=== PATIENT | male | born 1965 | race Caucasian/White ===

== ENCOUNTER 2017-06-04 08:57 | Inpatient (IN) | payer BC ==
[2017-06-04] VITALS (15 sets, daily range): BP systolic 108–141; BP diastolic 71–97
[~2017-06-04] VITALS: Ht 175.3 cm; Wt 85.0 kg
[2017-06-04] MEDS ORDERED: aspirin 81mg tab.chew PO ONE (09:05)
[2017-06-04] MEDS ORDERED: nitroGLYCERIN 0.4mg SUBLingual tab SL PRN ×2 (09:05→11:15)
[2017-06-04] MEDS ORDERED: metoprolol tartrate 25mg tablet PO ONE (09:10)
[2017-06-04] MEDS ORDERED: heparin 10,000 units/1 ML INJ IV PRN (09:20)
[2017-06-04] MEDS ORDERED: heparin 10,000 units/1 ML INJ IV ONE (09:20)
[2017-06-04] MEDS ORDERED: ondansetron/PF 4mg/2ml inj IV ONE (09:25)
[2017-06-04] MEDS ORDERED: morphine 4 MG/ML inj SYRINge IV ONE (09:25)
[2017-06-04 09:26] LABS: BASOPHILS % (AUTO) 0.4 % (0-1); EOSINOPHILS # (AUTO) 0.2 X10'3 (0-0.9); EOSINOPHILS % (AUTO) 2.1 % (0-6); HEMATOCRIT 47.3 % (42.0-52.0); HEMOGLOBIN 16.6 g/dl (14.0-17.9); LYMPHOCYTES # (AUTO) 2.8 X10'3 (1.1-4.8); LYMPHOCYTES % (AUTO) 28.1 % (21-51); MEAN CORPUSCULAR HEMOGLOBIN 32.2 PG (27.0-31.0); MEAN CORPUSCULAR HGB CONC 35.2 % (33.0-36.5); MEAN CORPUSCULAR VOLUME 91.4 FL (78-98); MEAN PLATELET VOLUME 8.2 FL (7.4-10.4); MONOCYTES # (AUTO) 0.8 X10'3 (0-0.9); NEUTROPHILS % (AUTO) 61.4 % (42-75); PLATELET COUNT 270 X10'3 (140-440); RED BLOOD COUNT 5.17 X10'6 (4.70-6.10); RED CELL DISTRIBUTION WIDTH 13.4 % (11.5-14.5); WHITE BLOOD COUNT 9.8 X10'3 (4.5-11.0)
[2017-06-04] MEDS ORDERED: fentaNYL/PF 50MCG/1 ML 2ML syringe ONE (09:39)
[2017-06-04] MEDS ORDERED: LIDOcaine 1%/PF (10mg/ml) 5ml vial ONE (09:40)
[2017-06-04] MEDS ORDERED: iohexol 350 MG/1 ML 200ml bottle ONE (09:40)
[2017-06-04] MEDS ORDERED: midazolam 2 mg/2 ml injection ONE (09:40)
[2017-06-04] MEDS ORDERED: atropine 0.1mg/ml 10ml syringe ONE (09:48)
[2017-06-04 09:53] LABS: ALANINE AMINOTRANSFERASE 30 U/L (12-78); ALBUMIN 4.1 G/DL (3.4-5.0); ALKALINE PHOSPHATASE 71 IU/L (46-116); ANION GAP 13 (8-16); ASPARTATE AMINO TRANSFERASE 27 U/L (10-37); BILIRUBIN,TOTAL 0.9 MG/DL (0.1-1.0); BLOOD UREA NITROGEN 16 MG/DL (7-18); BUN/CREATININE RATIO 11.6 (5.4-32.0); CALCIUM 9.5 MG/DL (8.5-10.1); CHLORIDE 103 MMOL/L (99-107); CREATININE 1.38 MG/DL (0.60-1.10); GLUCOSE 142 MG/DL (70-104); SODIUM 139 MMOL/L (135-145); TOTAL CARBON DIOXIDE 22.9 MMOL/L (24-32); TOTAL PROTEIN 8.1 G/DL (6.4-8.2); eGFR 54 ML/MIN
[2017-06-04 09:54] LABS: POTASSIUM 4.2 MMOL/L (3.5-5.1)
[2017-06-04] MEDS ORDERED: heparin 1,000unit/ml 10ml vial 10 ML ONE (09:55)
[2017-06-04] MEDS ORDERED: HYDROmorphone 1 mg/ml syringe ONE (10:06)
[2017-06-04] MEDS ORDERED: nitroGLYCERIN 0.4mg SUBLingual tab SL ONE (10:15)
[2017-06-04] MEDS ORDERED: iohexol 350MG/ML 100ml bottle IV ONE (10:20)
[2017-06-04] MEDS ORDERED: ticagrelor 90mg tablet ONE (10:41)
[2017-06-04] MEDS ORDERED: normal saline 1000ml 1,000 ML IV SCH (11:00)
[2017-06-04] MEDS ORDERED: HYDROcodone/acetaminophen 10/325mg tab PO PRN (11:15)
[2017-06-04] MEDS ORDERED: proCHLORperazine 10 MG/2 ml inj IV PRN (11:15)
[2017-06-04] MEDS ORDERED: ondansetron/PF 4mg/2ml inj IV PRN (11:15)
[2017-06-04] MEDS ORDERED: HYDROcodone/acetaminophen 5mg/325mg tablet PO PRN (11:15)
[2017-06-04] MEDS ORDERED: morphine 4 MG/ML inj SYRINge IV PRN (11:15)
[2017-06-04] MEDS ORDERED: acetaminophen 325mg tablet PO PRN (11:15)
[2017-06-04] MEDS ORDERED: LOSA25TA96 PO (12:16)
[2017-06-04] MEDS: ticagrelor 90mg tablet PO SCH (19:38)
[2017-06-04] MEDS: OXAZEpam 15mg capsule PO PRN (20:05)
[2017-06-05 03:00] VITALS: BP 130/88
[2017-06-05] MEDS: OXAZEpam 15mg capsule PO PRN (03:25)
[2017-06-05 07:00] VITALS: BP 138/84
[2017-06-05 07:33] LABS: BASOPHILS % (AUTO) 0.2 % (0-1); EOSINOPHILS # (AUTO) 0.2 X10'3 (0-0.9); EOSINOPHILS % (AUTO) 2.1 % (0-6); HEMOGLOBIN 14.9 g/dl (14.0-17.9); LYMPHOCYTES # (AUTO) 1.8 X10'3 (1.1-4.8); LYMPHOCYTES % (AUTO) 19.2 % (21-51); MEAN CORPUSCULAR HEMOGLOBIN 32.7 PG (27.0-31.0); MEAN CORPUSCULAR HGB CONC 35.5 % (33.0-36.5); MEAN CORPUSCULAR VOLUME 92.1 FL (78-98); MEAN PLATELET VOLUME 8.5 FL (7.4-10.4); MONOCYTES # (AUTO) 0.9 X10'3 (0-0.9); MONOCYTES % (AUTO) 9.9 % (2-12); NEUTROPHILS # (AUTO) 6.5 X10'3 (1.8-7.7); NEUTROPHILS % (AUTO) 68.6 % (42-75); PLATELET COUNT 210 X10'3 (140-440); RED BLOOD COUNT 4.56 X10'6 (4.70-6.10); RED CELL DISTRIBUTION WIDTH 13.4 % (11.5-14.5); WHITE BLOOD COUNT 9.5 X10'3 (4.5-11.0)
[2017-06-05 07:54] LABS: ALANINE AMINOTRANSFERASE 31 U/L (12-78); ALBUMIN 3.4 G/DL (3.4-5.0); ALKALINE PHOSPHATASE 59 IU/L (46-116); ANION GAP 7 (8-16); ASPARTATE AMINO TRANSFERASE 49 U/L (10-37); BILIRUBIN,TOTAL 0.8 MG/DL (0.1-1.0); BLOOD UREA NITROGEN 16 MG/DL (7-18); BUN/CREATININE RATIO 12.1 (5.4-32.0); CHLORIDE 105 MMOL/L (99-107); CHOL/HDL RATIO 6.2 (0.00-4.99); CHOLESTEROL 174 MG/DL (0-200); CREATININE 1.32 MG/DL (0.60-1.10); GLUCOSE 101 MG/DL (70-104); HDL CHOLESTEROL 28 MG/DL (35-60); LDL CHOLESTEROL 99 MG/DL (50-100); POTASSIUM 3.5 MMOL/L (3.5-5.1); SODIUM 138 MMOL/L (135-145); TOTAL CARBON DIOXIDE 25.6 MMOL/L (24-32); TOTAL PROTEIN 6.9 G/DL (6.4-8.2); TRIGLYCERIDES 232 MG/DL (20-135); eGFR 57 ML/MIN
[2017-06-05] MEDS ORDERED: losartan 25mg tablet PO SCH (08:00)
[2017-06-05] MEDS ORDERED: atorvastatin 20mg tablet PO SCH (08:00)
[2017-06-05] MEDS: ticagrelor 90mg tablet PO SCH (08:07)
[2017-06-05 11:00] VITALS: BP 129/96
[2017-06-05] MEDS ORDERED: ASPI81TA52 PO (13:56)
[2017-06-05] MEDS ORDERED: TICA90TA PO (13:59)
[2017-06-05] MEDS ORDERED: METO25TA6 PO (13:59)
[2017-06-05] MEDS ORDERED: ATOR20TA PO (13:59)
== END 2017-06-05 16:22 | disposition home or self-care (01) | DRG 247 ==
LOC: ER 08:57 → PCU 3S 16:56
PROVIDERS: ADMIT Internal Medicine Interventional Cardiology; ATTEND Internal Medicine Interventional Cardiology
PROC: 4A023N7 Measurement of Cardiac Sampling and Pressure, Left Heart, Percutaneous Approach (ICD-10-PCS; principal; 2017-06-04)
PROC: 027034Z Dilation of Coronary Artery, One Artery with Drug-eluting Intraluminal Device, Percutaneous Approach (ICD-10-PCS; 2017-06-04)
PROC: B2111ZZ Fluoroscopy of Multiple Coronary Arteries using Low Osmolar Contrast (ICD-10-PCS; 2017-06-04)
PROC: B2151ZZ Fluoroscopy of Left Heart using Low Osmolar Contrast (ICD-10-PCS; 2017-06-04)
DX: I21.3 ST elevation (STEMI) myocardial infarction of unspecified site (principal); I10 Essential (primary) hypertension; Z82.49 Family history of ischemic heart disease and other diseases of the circulatory system; Z79.899 Other long term (current) drug therapy
CPT/HCPCS: 93306; 93458; 96361; 96374; 96375; 99291; C9606; 36415; 80053; 80061; 83880; 84484; 85025; 93005; 99152; 99153; A4620; A6257; C1725; C1760; C1769; C1874; J0461; J1170; J1644; J2001; J2250; J2270; J2405; J3010; J7030; Q9967

== ENCOUNTER 2017-07-21 11:24 | Outpatient (CLI) | payer BC ==
[~2017-07-21 11:24] MED LIST: ASPI81TA52 PO; ATOR20TA PO; LOSA25TA96 PO; METO25TA6 PO; TICA90TA PO
[2017-07-21 12:27] LABS: ALANINE AMINOTRANSFERASE 40 U/L (12-78); ALBUMIN 3.7 G/DL (3.4-5.0); ALBUMIN/GLOBULIN RATIO 1.1 (1.1-1.5); ALKALINE PHOSPHATASE 62 IU/L (46-116); ANION GAP 12 (8-16); ASPARTATE AMINO TRANSFERASE 17 U/L (10-37); BILIRUBIN,TOTAL 0.6 MG/DL (0.1-1.0); BLOOD UREA NITROGEN 20 MG/DL (7-18); BUN/CREATININE RATIO 16.7 (5.4-32.0); CHLORIDE 109 MMOL/L (99-107); CHOL/HDL RATIO 4.1 (0.00-4.99); CHOLESTEROL 134 MG/DL (0-200); GLUCOSE 106 MG/DL (70-104); HDL CHOLESTEROL 33 MG/DL (35-60); LDL CHOLESTEROL 64 MG/DL (50-100); POTASSIUM 4.1 MMOL/L (3.5-5.1); SODIUM 144 MMOL/L (135-145); TOTAL CARBON DIOXIDE 23.4 MMOL/L (24-32); TRIGLYCERIDES 215 MG/DL (20-135); eGFR 63 ML/MIN
== END 2017-07-21 23:59 | disposition home or self-care (01) ==
LOC: LAB 11:24
PROVIDERS: ATTEND Internal Medicine Interventional Cardiology
DX: I10 Essential (primary) hypertension (principal); E78.5 Hyperlipidemia, unspecified
CPT/HCPCS: 36415; 80053; 80061

== ENCOUNTER 2018-04-21 10:35 | Outpatient (CLI) | payer BC, OTHER ==
[2018-04-21 11:38] LABS: ALANINE AMINOTRANSFERASE 40 U/L (12-78); ALBUMIN 4.1 G/DL (3.4-5.0); ALBUMIN/GLOBULIN RATIO 1.2 (1.1-1.5); ALKALINE PHOSPHATASE 71 IU/L (46-116); ANION GAP 8 (8-16); ASPARTATE AMINO TRANSFERASE 19 U/L (10-37); BILIRUBIN,TOTAL 0.9 MG/DL (0.1-1.0); BLOOD UREA NITROGEN 19 MG/DL (7-18); BUN/CREATININE RATIO 15.2 (5.4-32.0); CALCIUM 9.5 MG/DL (8.5-10.1); CHLORIDE 105 MMOL/L (99-107); CHOL/HDL RATIO 3.8 (0.00-4.99); CHOLESTEROL 139 MG/DL (0-200); CREATININE 1.25 MG/DL (0.60-1.10); GLUCOSE 102 MG/DL (70-104); HDL CHOLESTEROL 37 MG/DL (35-60); LDL CHOLESTEROL 77 MG/DL (50-100); POTASSIUM 4.1 MMOL/L (3.5-5.1); SODIUM 140 MMOL/L (135-145); TOTAL CARBON DIOXIDE 26.7 MMOL/L (24-32); TOTAL PROTEIN 7.6 G/DL (6.4-8.2); TRIGLYCERIDES 154 MG/DL (20-135); eGFR 60 ML/MIN
== END 2018-04-21 23:59 | disposition home or self-care (01) ==
LOC: LAB 10:35
PROVIDERS: ATTEND Internal Medicine Cardiovascular Disease
DX: I25.118 Atherosclerotic heart disease of native coronary artery with other forms of angina pectoris (principal); E78.5 Hyperlipidemia, unspecified; I10 Essential (primary) hypertension
CPT/HCPCS: 36415; 80053; 80061

== ENCOUNTER 2018-05-11 07:41 | Day surgery (SDC) | payer BC, OTHER ==
[~2018-05-11] VITALS: Ht 175.3 cm; Wt 86.2 kg
[2018-05-11] VITALS (9 sets, daily range): BP systolic 103–151; BP diastolic 59–93
[2018-05-11] MEDS ORDERED: diphenhydrAMINE 25mg capsule PO PRN (08:15)
[2018-05-11] MEDS ORDERED: sod bicarbonate 150mEq in D5W 1,150 ML IV ONE (08:15)
[2018-05-11] MEDS ORDERED: CLOP75TA33 PO (08:21)
[2018-05-11] MEDS ORDERED: METO-395 PO (08:21)
[2018-05-11] MEDS ORDERED: ASPI-1265 PO (08:21)
[2018-05-11] MEDS ORDERED: CLIN300C70 PO (08:21)
[2018-05-11] MEDS ORDERED: ATOR40TA PO (08:21)
[2018-05-11 08:53] LABS: BASOPHILS % (AUTO) 0.7 % (0-1); EOSINOPHILS # (AUTO) 0.2 X10'3 (0-0.9); MEAN CORPUSCULAR HEMOGLOBIN 31.9 PG (27.0-31.0); MEAN CORPUSCULAR HGB CONC 34.8 g/dL (33.0-36.5); MEAN CORPUSCULAR VOLUME 91.7 FL (78-98); MEAN PLATELET VOLUME 8.4 FL (7.4-10.4); MONOCYTES # (AUTO) 0.7 X10'3 (0-0.9); MONOCYTES % (AUTO) 11.1 % (2-12); NEUTROPHILS % (AUTO) 51.2 % (42-75); PLATELET COUNT 242 X10'3 (140-440); RED BLOOD COUNT 5.01 X10'6 (4.70-6.10); RED CELL DISTRIBUTION WIDTH 13.5 % (11.5-14.5); WHITE BLOOD COUNT 5.9 X10'3 (4.5-11.0)
[2018-05-11 08:57] LABS: ANION GAP 7 (8-16); BLOOD UREA NITROGEN 16 MG/DL (7-18); BUN/CREATININE RATIO 11.7 (5.4-32.0); CALCIUM 9.3 MG/DL (8.5-10.1); CHLORIDE 105 MMOL/L (99-107); CREATININE 1.37 MG/DL (0.60-1.10); GLUCOSE 97 MG/DL (70-104); MAGNESIUM 1.9 MG/DL (1.5-2.4); POTASSIUM 4.1 MMOL/L (3.5-5.1); PROTHROMBIN TIME 10.3 SECONDS (9.0-12.0); SODIUM 139 MMOL/L (135-145); TOTAL CARBON DIOXIDE 27.3 MMOL/L (24-32); eGFR 54 ML/MIN
[2018-05-11] MEDS ORDERED: iohexol 350MG/ML 100ml bottle IV ONE ×2 (09:11→10:08)
[2018-05-11] MEDS ORDERED: iohexol 350 MG/ML 50ML vial IV ONE (09:11)
[2018-05-11] MEDS ORDERED: fentaNYL/PF 50MCG/1 ML 2ML syringe ONE ×2 (09:11→09:56)
[2018-05-11] MEDS ORDERED: LIDOcaine 1% (10mg/ml)w/preservative injection 20ml MDV ONE (09:11)
[2018-05-11] MEDS ORDERED: midazolam 2 mg/2 ml injection ONE ×4 (09:11→10:21)
[2018-05-11] MEDS ORDERED: heparin 1,000unit/ml 10ml vial 10 ML ONE (10:08)
[2018-05-11] MEDS ORDERED: nitroGLYCERIN-Tridil 50MG/D5W 250 ML IV ONE (10:20)
[2018-05-11] MEDS ORDERED: clopidogrel 300mg tablet ONE (10:31)
[2018-05-11] MEDS ORDERED: proCHLORperazine 10 MG/2 ml inj IV PRN (11:00)
--- NOTE | 2018-05-11 13:55 | NUR ---
called MD for confirmation on medication reconciliation.waiting for call back
== END 2018-05-11 14:15 | disposition home or self-care (01) ==
LOC: SSTAY O 07:41
PROVIDERS: ATTEND Internal Medicine Cardiovascular Disease
DX: I25.10 Atherosclerotic heart disease of native coronary artery without angina pectoris (principal); E78.5 Hyperlipidemia, unspecified; I10 Essential (primary) hypertension; F41.9 Anxiety disorder, unspecified; Z98.890 Other specified postprocedural states; Z88.1 Allergy status to other antibiotic agents
CPT/HCPCS: 36415; 80048; 83735; 85025; 85610; 93005; 93458; 99152; 99153; A6257; C1874; C9600; J0780; J1644; J2001; J2250; J3010; Q0163; Q9967; A4620; C1725; C1760; C1769; C1894; J3490

== ENCOUNTER 2018-10-27 07:47 | Outpatient (CLI) | payer BC, OTHER ==
[~2018-10-27 07:47] MED LIST changes: +ASPI-1265 PO; -ASPI81TA52 PO; -ATOR20TA PO; +ATOR40TA PO; +CLIN300C70 PO; +CLOP75TA33 PO; +METO-395 PO; -METO25TA6 PO; -TICA90TA PO
[2018-10-27 09:04] LABS: ALANINE AMINOTRANSFERASE 34 U/L (12-78); ALBUMIN 3.8 G/DL (3.4-5.0); ALBUMIN/GLOBULIN RATIO 1.2 (1.1-1.5); ALKALINE PHOSPHATASE 56 IU/L (46-116); ANION GAP 7 (8-16); ASPARTATE AMINO TRANSFERASE 17 U/L (10-37); BILIRUBIN,TOTAL 0.9 MG/DL (0.1-1.0); BLOOD UREA NITROGEN 19 MG/DL (7-18); BUN/CREATININE RATIO 13.7 (5.4-32.0); CALCIUM 8.7 MG/DL (8.5-10.1); CHLORIDE 110 MMOL/L (99-107); CHOL/HDL RATIO 3.1 (0.00-4.99); CHOLESTEROL 107 MG/DL (0-200); CREATININE 1.39 MG/DL (0.60-1.10); GLUCOSE 95 MG/DL (70-104); HDL CHOLESTEROL 34 MG/DL (35-60); LDL CHOLESTEROL 60 MG/DL (50-100); SODIUM 143 MMOL/L (135-145); TOTAL CARBON DIOXIDE 26.4 MMOL/L (24-32); TRIGLYCERIDES 93 MG/DL (20-135); eGFR 53 ML/MIN
== END 2018-10-27 23:59 | disposition home or self-care (01) ==
LOC: LAB 07:47
PROVIDERS: ATTEND Internal Medicine Cardiovascular Disease
DX: I25.118 Atherosclerotic heart disease of native coronary artery with other forms of angina pectoris (principal); E78.5 Hyperlipidemia, unspecified; I10 Essential (primary) hypertension
CPT/HCPCS: 36415; 80053; 80061

== ENCOUNTER 2020-04-21 08:03 | Outpatient (CLI) | payer BC ==
[2020-04-25 17:26] LABS: TESTOSTERONE, FREE, DIRECT 7.2 pg/mL (7.2-24.0)
== END 2020-04-21 23:59 | disposition home or self-care (01) ==
LOC: LAB 08:03
PROVIDERS: ATTEND Internal Medicine Cardiovascular Disease
DX: Z12.5 Encounter for screening for malignant neoplasm of prostate (principal); I25.118 Atherosclerotic heart disease of native coronary artery with other forms of angina pectoris; E78.5 Hyperlipidemia, unspecified; Z13.29 Encounter for screening for other suspected endocrine disorder; Z95.5 Presence of coronary angioplasty implant and graft
CPT/HCPCS: 36415; 84402; 84403

== ENCOUNTER 2020-05-01 07:40 | Outpatient (CLI) | payer BC ==
[2020-05-01] VITALS (8 sets, daily range): BP systolic 131–149; BP diastolic 84–101
[~2020-05-01] VITALS: Ht 175.3 cm; Wt 86.3 kg
[2020-05-01] MEDS ORDERED: nitroGLYCERIN 0.4mg SUBLingual tab SL PRN (08:35)
[2020-05-01] MEDS ORDERED: aminophylline 250mg/10ml inj. IV PRN (08:35)
[2020-05-01] MEDS ORDERED: regadenoson 0.4mg/5ml syringe IV PRN (08:35)
== END 2020-05-01 23:59 | disposition home or self-care (01) ==
LOC: VAS 07:40
PROVIDERS: ATTEND Internal Medicine Cardiovascular Disease
DX: I65.23 Occlusion and stenosis of bilateral carotid arteries (principal); I10 Essential (primary) hypertension; R07.9 Chest pain, unspecified; I25.118 Atherosclerotic heart disease of native coronary artery with other forms of angina pectoris
CPT/HCPCS: 78452; 93017; 93880; A9500

== ENCOUNTER 2020-06-07 07:48 | Outpatient (CLI) | payer BC ==
[2020-06-07 08:36] LABS: BASOPHILS % (AUTO) 0.7 % (0-1); EOSINOPHILS # (AUTO) 0.2 X10'3 (0-0.9); EOSINOPHILS % (AUTO) 3.6 % (0-6); HEMATOCRIT 46.4 % (42.0-52.0); HEMOGLOBIN 15.6 g/dl (14.0-17.9); LYMPHOCYTES # (AUTO) 1.9 X10'3 (1.1-4.8); LYMPHOCYTES % (AUTO) 31.1 % (21-51); MEAN CORPUSCULAR HEMOGLOBIN 31.6 PG (27.0-31.0); MEAN CORPUSCULAR HGB CONC 33.6 g/dL (33.0-36.5); MEAN CORPUSCULAR VOLUME 93.9 FL (78-98); MEAN PLATELET VOLUME 8.6 FL (7.4-10.4); MONOCYTES # (AUTO) 0.8 X10'3 (0-0.9); NEUTROPHILS % (AUTO) 50.6 % (42-75); PLATELET COUNT 257 X10'3 (140-440); RED BLOOD COUNT 4.95 X10'6 (4.70-6.10); RED CELL DISTRIBUTION WIDTH 13.8 % (11.5-14.5)
[2020-06-07 08:51] LABS: ALANINE AMINOTRANSFERASE 47 U/L (12-78); ALBUMIN/GLOBULIN RATIO 1.2 (1.1-1.5); ALKALINE PHOSPHATASE 79 IU/L (46-116); ANION GAP 10 (8-16); ASPARTATE AMINO TRANSFERASE 21 U/L (10-37); BILIRUBIN,TOTAL 0.6 MG/DL (0.1-1.0); BLOOD UREA NITROGEN 22 MG/DL (7-18); BUN/CREATININE RATIO 14.4 (5.4-32.0); CHLORIDE 104 MMOL/L (99-107); CHOLESTEROL 160 MG/DL (0-200); CREATININE 1.53 MG/DL (0.60-1.10); GLUCOSE 110 MG/DL (70-104); HDL CHOLESTEROL 32 MG/DL (35-60); LDL CHOLESTEROL 71 MG/DL (50-100); POTASSIUM 4.3 MMOL/L (3.5-5.1); SODIUM 141 MMOL/L (135-145); TOTAL CARBON DIOXIDE 27.1 MMOL/L (24-32); TOTAL PROTEIN 7.4 G/DL (6.4-8.2); TRIGLYCERIDES 282 MG/DL (20-135); eGFR 47 ML/MIN
[2020-06-08 12:05] LABS: % FREE PSA 73.3 % (.); PSA, FREE 0.44 ng/mL
== END 2020-06-07 23:59 | disposition home or self-care (01) ==
LOC: LAB 07:48
PROVIDERS: ATTEND Family Medicine
DX: Z00.00 Encounter for general adult medical examination without abnormal findings (principal)
CPT/HCPCS: 36415; 80053; 80061; 84153; 84154; 85025

== ENCOUNTER 2021-07-18 08:20 | Outpatient (CLI) | payer BC ==
[2021-07-18 08:57] LABS: BASOPHILS % (AUTO) 0.7 % (0-1); EOSINOPHILS # (AUTO) 0.3 X10'3 (0-0.9); EOSINOPHILS % (AUTO) 4.6 % (0-6); HEMATOCRIT 45.3 % (42.0-52.0); HEMOGLOBIN 15.5 g/dl (14.0-17.9); LYMPHOCYTES # (AUTO) 1.9 X10'3 (1.1-4.8); LYMPHOCYTES % (AUTO) 30.6 % (21-51); MEAN CORPUSCULAR HEMOGLOBIN 31.3 PG (27.0-31.0); MEAN CORPUSCULAR HGB CONC 34.3 g/dL (33.0-36.5); MEAN CORPUSCULAR VOLUME 91.4 FL (78-98); MEAN PLATELET VOLUME 8.5 FL (7.4-10.4); MONOCYTES # (AUTO) 0.8 X10'3 (0-0.9); NEUTROPHILS # (AUTO) 3.3 X10'3 (1.8-7.7); NEUTROPHILS % (AUTO) 52.1 % (42-75); PLATELET COUNT 216 X10'3 (140-440); RED BLOOD COUNT 4.95 X10'6 (4.70-6.10); RED CELL DISTRIBUTION WIDTH 13.2 % (11.5-14.5); WHITE BLOOD COUNT 6.3 X10'3 (4.5-11.0)
[2021-07-18 09:17] LABS: ALANINE AMINOTRANSFERASE 53 U/L (12-78); ALBUMIN/GLOBULIN RATIO 1.2 (1.1-1.5); ALKALINE PHOSPHATASE 65 IU/L (46-116); ANION GAP 8 (8-16); ASPARTATE AMINO TRANSFERASE 23 U/L (10-37); BILIRUBIN,TOTAL 0.7 MG/DL (0.1-1.0); BLOOD UREA NITROGEN 23 MG/DL (7-18); BUN/CREATININE RATIO 17.2 (5.4-32.0); CALCIUM 9.1 MG/DL (8.5-10.1); CHLORIDE 107 MMOL/L (99-107); CHOL/HDL RATIO 4.6 (0.00-4.99); CHOLESTEROL 167 MG/DL (0-200); CREATININE 1.34 MG/DL (0.60-1.10); GLUCOSE 101 MG/DL (70-104); HDL CHOLESTEROL 36 MG/DL (35-60); LDL CHOLESTEROL 86 MG/DL (50-100); POTASSIUM 4.2 MMOL/L (3.5-5.1); SODIUM 143 MMOL/L (135-145); TOTAL CARBON DIOXIDE 27.6 MMOL/L (24-32); TOTAL PROTEIN 7.3 G/DL (6.4-8.2); TRIGLYCERIDES 215 MG/DL (20-135); eGFR 55 ML/MIN
[2021-07-22 15:10] LABS: TESTOSTERONE, FREE, DIRECT 5.2 pg/mL (7.2-24.0)
== END 2021-07-18 23:59 | disposition home or self-care (01) ==
LOC: LAB 08:20
PROVIDERS: ATTEND Internal Medicine Cardiovascular Disease
DX: I25.118 Atherosclerotic heart disease of native coronary artery with other forms of angina pectoris (principal); E78.5 Hyperlipidemia, unspecified
CPT/HCPCS: 36415; 80053; 80061; 84402; 84403; 85025

== ENCOUNTER 2022-09-13 10:29 | Outpatient (CLI) | payer BC ==
[2022-09-13 11:02] LABS: BASOPHILS % (AUTO) 0.5 % (0-1); EOSINOPHILS # (AUTO) 0.2 X10'3 (0-0.9); EOSINOPHILS % (AUTO) 2.9 % (0-6); HEMATOCRIT 45.8 % (42.0-52.0); HEMOGLOBIN 15.9 g/dl (14.0-17.9); LYMPHOCYTES # (AUTO) 1.8 X10'3 (1.1-4.8); LYMPHOCYTES % (AUTO) 30.9 % (21-51); MEAN CORPUSCULAR HGB CONC 34.7 g/dL (33.0-36.5); MEAN CORPUSCULAR VOLUME 92.4 FL (78-98); MEAN PLATELET VOLUME 8.2 FL (7.4-10.4); MONOCYTES # (AUTO) 0.7 X10'3 (0-0.9); MONOCYTES % (AUTO) 11.1 % (2-12); NEUTROPHILS # (AUTO) 3.2 X10'3 (1.8-7.7); NEUTROPHILS % (AUTO) 54.6 % (42-75); PLATELET COUNT 249 X10'3 (140-440); RED BLOOD COUNT 4.96 X10'6 (4.70-6.10); RED CELL DISTRIBUTION WIDTH 12.9 % (11.5-14.5); WHITE BLOOD COUNT 5.9 X10'3 (4.5-11.0)
[2022-09-13 11:36] LABS: ALANINE AMINOTRANSFERASE 39 U/L (12-78); ALBUMIN/GLOBULIN RATIO 1.3 (1.1-1.5); ALKALINE PHOSPHATASE 68 IU/L (46-116); ANION GAP 13 (8-16); ASPARTATE AMINO TRANSFERASE 23 U/L (10-37); BILIRUBIN,TOTAL 0.8 MG/DL (0.1-1.0); BLOOD UREA NITROGEN 19 MG/DL (7-18); BUN/CREATININE RATIO 13.9 (10.0-20.0); CALCIUM 8.8 MG/DL (8.5-10.1); CHLORIDE 107 MMOL/L (99-107); CREATININE 1.37 MG/DL (0.60-1.10); GLUCOSE 100 MG/DL (70-104); SODIUM 142 MMOL/L (135-145); TOTAL CARBON DIOXIDE 22.5 MMOL/L (24-32); TOTAL PROTEIN 7.2 G/DL (6.4-8.2); eGFR 53 ML/MIN
[2022-09-13 11:39] LABS: CHOL/HDL RATIO 4.6 (0.00-4.99); CHOLESTEROL 143 MG/DL (0-200); HDL CHOLESTEROL 31 MG/DL (35-60); LDL CHOLESTEROL 70 MG/DL (50-100); TRIGLYCERIDES 224 MG/DL (20-135)
== END 2022-09-13 23:59 | disposition home or self-care (01) ==
LOC: LAB 10:29
PROVIDERS: ATTEND Internal Medicine Cardiovascular Disease
DX: I25.118 Atherosclerotic heart disease of native coronary artery with other forms of angina pectoris (principal); I10 Essential (primary) hypertension; E78.5 Hyperlipidemia, unspecified
CPT/HCPCS: 36415; 80053; 80061; 85025

== ENCOUNTER 2023-08-08 16:23 | Emergency (ER) | payer BC ==
[~2023-08-08] VITALS: Ht 175.3 cm; Wt 87.7 kg
[~2023-08-08 16:23] MED LIST changes: -CLIN300C70 PO; +LOSA-415 PO; -LOSA25TA96 PO; +[UNRECOGNIZED DRUG - CODE] PO
[2023-08-08 17:28] VITALS: BP 125/80; PULSE 64; RESP 18; O2SAT 100
[2023-08-08] MEDS: LIDOcaine 1% 30ml preserv. free vial IJ STA (17:45)
[2023-08-08 18:32] VITALS: TEMP 98.6
== END 2023-08-08 18:36 | disposition home or self-care (01) ==
LOC: ER 16:24
DX: S63.287A Dislocation of proximal interphalangeal joint of left little finger, initial encounter (principal); I25.10 Atherosclerotic heart disease of native coronary artery without angina pectoris; I10 Essential (primary) hypertension; I25.2 Old myocardial infarction; W23.0XXA Caught, crushed, jammed, or pinched between moving objects, initial encounter; Y93.89 Activity, other specified; Y92.89 Other specified places as the place of occurrence of the external cause; Y99.8 Other external cause status
CPT/HCPCS: 26770; 73140; 99284

== ENCOUNTER 2023-11-17 08:14 | Outpatient (CLI) | payer BC ==
[2023-11-17 08:46] LABS: BASOPHILS % (AUTO) 0.4 % (0-1); EOSINOPHILS # (AUTO) 0.3 X10'3 (0-0.9); EOSINOPHILS % (AUTO) 4.9 % (0-6); HEMATOCRIT 45.8 % (42.0-52.0); HEMOGLOBIN 15.6 g/dl (14.0-17.9); LYMPHOCYTES # (AUTO) 1.7 X10'3 (1.1-4.8); MEAN CORPUSCULAR HEMOGLOBIN 32.6 PG (27.0-31.0); MEAN CORPUSCULAR HGB CONC 34.2 g/dL (33.0-36.5); MEAN CORPUSCULAR VOLUME 95.5 FL (78-98); MEAN PLATELET VOLUME 8.2 FL (7.4-10.4); MONOCYTES # (AUTO) 0.6 X10'3 (0-0.9); MONOCYTES % (AUTO) 10.6 % (2-12); NEUTROPHILS % (AUTO) 53.1 % (42-75); PLATELET COUNT 224 X10'3 (140-440); RED BLOOD COUNT 4.79 X10'6 (4.70-6.10); RED CELL DISTRIBUTION WIDTH 13.4 % (11.5-14.5); WHITE BLOOD COUNT 5.6 X10'3 (4.5-11.0)
[2023-11-17 09:14] LABS: ALANINE AMINOTRANSFERASE 62 U/L (12-78); ALBUMIN/GLOBULIN RATIO 1.2 (1.1-1.5); ALKALINE PHOSPHATASE 67 IU/L (46-116); ANION GAP 9 (8-16); ASPARTATE AMINO TRANSFERASE 29 U/L (10-37); BLOOD UREA NITROGEN 22 MG/DL (7-18); BUN/CREATININE RATIO 16.3 (10.0-20.0); CALCIUM 9.1 MG/DL (8.5-10.1); CHLORIDE 107 MMOL/L (99-107); CHOL/HDL RATIO 4.6 (0.00-4.99); CHOLESTEROL 170 MG/DL (0-200); CREATININE 1.35 MG/DL (0.60-1.10); GLUCOSE 99 MG/DL (70-104); HDL CHOLESTEROL 37 MG/DL (35-60); LDL CHOLESTEROL 91 MG/DL (50-100); POTASSIUM 4.1 MMOL/L (3.5-5.1); SODIUM 141 MMOL/L (135-145); TOTAL CARBON DIOXIDE 24.9 MMOL/L (24-32); TOTAL PROTEIN 7.3 G/DL (6.4-8.2); TRIGLYCERIDES 189 MG/DL (20-135); eGFR 54 ML/MIN
== END 2023-11-17 23:59 | disposition home or self-care (01) ==
LOC: LAB 08:14
PROVIDERS: ATTEND Internal Medicine Cardiovascular Disease
DX: I25.118 Atherosclerotic heart disease of native coronary artery with other forms of angina pectoris (principal); E78.5 Hyperlipidemia, unspecified
CPT/HCPCS: 36415; 80053; 80061; 85025

== ENCOUNTER 2024-02-06 12:09 | Emergency (ER) | payer BC ==
[~2024-02-06] VITALS: Ht 175.3 cm; Wt 86.0 kg
[2024-02-06] MEDS: HYDROcodone/acetaminophen 5mg/325mg tablet PO ONE (13:06)
[2024-02-06 15:07] VITALS: BP 145/76; PULSE 99; RESP 16; TEMP 97.3; O2SAT 99
[2024-02-07] MEDS ORDERED: HYDR-3965 PO (10:59)
== END 2024-02-06 14:36 | disposition home or self-care (01) ==
LOC: ER 12:09
DX: S89.201A Unspecified physeal fracture of upper end of right fibula, initial encounter for closed fracture (principal); I25.10 Atherosclerotic heart disease of native coronary artery without angina pectoris; I10 Essential (primary) hypertension; I25.2 Old myocardial infarction; Z79.82 Long term (current) use of aspirin; Z79.899 Other long term (current) drug therapy; Z79.01 Long term (current) use of anticoagulants; W11.XXXA Fall on and from ladder, initial encounter; Y93.89 Activity, other specified; Y92.89 Other specified places as the place of occurrence of the external cause; Y99.8 Other external cause status
CPT/HCPCS: 73030; 73590; 99284; L4360

== ENCOUNTER 2024-11-24 09:46 | Outpatient (CLI) | payer BC ==
[~2024-11-24 09:46] MED LIST changes: -[UNRECOGNIZED DRUG - CODE] PO
[2024-11-24 10:30] LABS: MEAN PLATELET VOLUME 8.7 FL (7.4-10.4); RED CELL DISTRIBUTION WIDTH 13.4 % (11.5-14.5)
[2024-11-24 10:46] LABS: CHOL/HDL RATIO 5.3 (0.00-4.99); CREATININE 1.29 MG/DL (0.60-1.10); LDL CHOLESTEROL 96 MG/DL (50-100); TOTAL CARBON DIOXIDE 22.1 MMOL/L (24-32); eGFR 57 ML/MIN
== END 2024-11-24 23:59 | disposition home or self-care (01) ==
LOC: RAD 09:46
PROVIDERS: ATTEND Internal Medicine Cardiovascular Disease
DX: I25.118 Atherosclerotic heart disease of native coronary artery with other forms of angina pectoris (principal); I10 Essential (primary) hypertension; E78.5 Hyperlipidemia, unspecified
CPT/HCPCS: 36415; 80053; 80061; 85025